=== PATIENT | male | born 1980 | race African-American/Black ===

== ENCOUNTER 2016-12-03 19:50 | Emergency (ER) | payer OTHER ==
[~2016-12-03] VITALS: Ht 190.5 cm; Wt 82.0 kg
[2016-12-03] MEDS ORDERED: KETOROLAC 60MG/2ML VIAL IM ONE (23:15)
[2016-12-04] MEDS ORDERED: HYDROCODONE/ACETAMINOPHEN 5/325MG TABLET PO ONE (00:45)
[2016-12-04 01:10] VITALS: BP 136/86
== END 2016-12-04 02:54 | disposition home or self-care (01) ==
LOC: ER 12-04 00:42
DX: M25.462 Effusion, left knee (principal); F17.210 Nicotine dependence, cigarettes, uncomplicated; Z98.890 Other specified postprocedural states; F12.10 Cannabis abuse, uncomplicated; X50.1XXA Overexertion from prolonged static or awkward postures, initial encounter; Y93.89 Activity, other specified; Y92.488 Other paved roadways as the place of occurrence of the external cause
CPT/HCPCS: 73562; 96372; 99284; J1885; L1830; Z7610

== ENCOUNTER 2016-12-15 22:27 | Emergency (ER) | payer OTHER ==
[~2016-12-15] VITALS: Ht 188 cm; Wt 82.0 kg
[2016-12-16] MEDS ORDERED: HYDROCODONE/ACETAMINOPHEN 10/325MG TABLET PO ONE (01:15)
[2016-12-16 01:46] VITALS: BP 136/72
== END 2016-12-16 02:52 | disposition home or self-care (01) ==
LOC: ER 22:27
DX: S80.12XA Contusion of left lower leg, initial encounter (principal); J45.909 Unspecified asthma, uncomplicated; F17.200 Nicotine dependence, unspecified, uncomplicated; F12.10 Cannabis abuse, uncomplicated; X58.XXXA Exposure to other specified factors, initial encounter; Y93.89 Activity, other specified; Y92.89 Other specified places as the place of occurrence of the external cause; Y99.8 Other external cause status
CPT/HCPCS: 93971; 99284